=== PATIENT | male | born 1960 | race African-American/Black ===

== ENCOUNTER 2017-01-12 15:23 | Inpatient (IN) | payer OTHER ==
[~2017-01-12] VITALS: Ht 182.9 cm; Wt 130.4 kg
[~2017-01-12 15:23] MED LIST: AMBIEN5 MG PO; AMLODIPINE BESY10 MG PO; ATENOLOL100 MG PO; Ambien PO; Ascorbic Acid,Ester- PO; Dulcolax PR; Feosol PO; IRON325 M1 PO; LASIX40 MG PO; LIPITOR20 MG PO; LOSARTAN POTAS100 MG PO; POTASSIUM CHLO10 ME3 PO; Tenormin PO; VITAMIN D50000 UNI4 PO; Zestril,Prinivil PO; Zocor PO
[2017-01-12 16:21] LABS: HEMATOCRIT 33.6 % (38.0-50.0); MCH 28.6 PG (29.0-34.0); MCHC 34.2 G/DL (30.0-36.0); MCV 83.6 FL (86-99); MEAN PLAT.VOLUME 9.5 uM^3 (9.0-12.4); PLATELET COUNT 671 K/uL (156-360); RBC DIS.WIDTH-CV 15.5 % (11.8-14.6); RBC DIS.WIDTH-SD 46.8 % (39-53); RED BLOOD COUNT 4.02 M/uL (4.00-5.50); WHITE BLOOD COUNT 25.6 K/uL (4.1-10.2)
[2017-01-12 16:29] LABS: CHLORIDE 100 mEq/L (99-109); SODIUM 138 mEq/L (136-147)
[2017-01-12 16:31] LABS: GLUCOSE 100 mg/dL (70-99)
[2017-01-12 16:33] LABS: ANION GAP 16 MEQ/L (2-14)
[2017-01-12 16:35] LABS: GFR ESTIMATE (CALCULATED) 54 mL/min/
[2017-01-12 16:36] LABS: UREA NITROGEN (BUN) 42 mg/dL (9-23)
[2017-01-12] MEDS ORDERED: RANITIDINE HCL300 MG PO (18:22)
[2017-01-12] MEDS ORDERED: BACLOFEN10 MG PO (18:22)
[2017-01-12 22:25] LABS: CREATINE KINASE 289 IU/L (1-294)
[2017-01-12 22:45] VITALS: BP 98/52
[2017-01-13] VITALS (7 sets, daily range): BP systolic 96–140; BP diastolic 50–67
[2017-01-13 08:01] LABS: EOSINOPHIL (%) 0.3 % (0-5); EOSINOPHIL COUNT 0.1 K/uL (0-0.3); HEMATOCRIT 27.1 % (38.0-50.0); IMMATURE GRANULOCYTE (%) 1.9 % (0.0-0.7); IMMATURE GRANULOCYTE COUNT 0.3 K/uL; LYMPHOCYTE COUNT 0.6 K/uL (1.0-2.8); MCH 28.3 PG (29.0-34.0); MCHC 33.9 G/DL (30.0-36.0); MCV 83.4 FL (86-99); MEAN PLAT.VOLUME 9.8 uM^3 (9.0-12.4); MONOCYTE (%) 7.4 % (3-12); MONOCYTE COUNT 1.3 K/uL (0-0.8); PLATELET COUNT 561 K/uL (156-360); RBC DIS.WIDTH-CV 15.5 % (11.8-14.6); RBC DIS.WIDTH-SD 46.3 % (39-53); RED BLOOD COUNT 3.25 M/uL (4.00-5.50)
[2017-01-13 08:06] LABS: WHITE BLOOD COUNT 17.2 K/uL (4.1-10.2)
[2017-01-13 08:15] LABS: ANION GAP 14 MEQ/L (2-14); CHLORIDE 105 MEQ/L (99-109); GFR ESTIMATE (CALCULATED) > 59 mL/min/; GLUCOSE 107 mg/dL (70-99); POTASSIUM 3.6 MEQ/L (3.7-5.4); SAMPLE HEMOLYSIS CHECK 0; SAMPLE ICTERIC CHECK 1; SAMPLE LIPEMIA CHECK 0; SODIUM 138 MEQ/L (136-147); UREA NITROGEN (BUN) 30 mg/dL (9-23)
[2017-01-14 00:32] VITALS: BP 97/56
[2017-01-14 04:30] VITALS: BP 95/53
[2017-01-14 06:29] LABS: BASOPHIL COUNT 0.1 K/uL (0-0.1); EOSINOPHIL (%) 0.8 % (0-5); EOSINOPHIL COUNT 0.1 K/uL (0-0.3); HEMATOCRIT 25.4 % (38.0-50.0); IMMATURE GRANULOCYTE (%) 1.7 % (0.0-0.7); IMMATURE GRANULOCYTE COUNT 0.3 K/uL; INSTRUMENT ABS NEUTROPHIL CT 14.2 K/uL; LYMPHOCYTE COUNT 0.7 K/uL (1.0-2.8); MCH 28.5 PG (29.0-34.0); MCHC 33.9 G/DL (30.0-36.0); MCV 84.1 FL (86-99); MEAN PLAT.VOLUME 9.5 uM^3 (9.0-12.4); MONOCYTE (%) 8.1 % (3-12); MONOCYTE COUNT 1.4 K/uL (0-0.8); NEUTROPHIL COUNT 14.2 K/uL (1.8-6.4); PLATELET COUNT 513 K/uL (156-360); RBC DIS.WIDTH-CV 15.6 % (11.8-14.6); RBC DIS.WIDTH-SD 46.8 % (39-53); RED BLOOD COUNT 3.02 M/uL (4.00-5.50); WHITE BLOOD COUNT 16.7 K/uL (4.1-10.2)
[2017-01-14 06:55] LABS: ANION GAP 13 MEQ/L (2-14); CHLORIDE 105 MEQ/L (99-109); GFR ESTIMATE (CALCULATED) > 59 mL/min/; GLUCOSE 85 mg/dL (70-99); POTASSIUM 3.4 MEQ/L (3.7-5.4); SAMPLE HEMOLYSIS CHECK 0; SAMPLE ICTERIC CHECK 1; SAMPLE LIPEMIA CHECK 0; SODIUM 137 MEQ/L (136-147); UREA NITROGEN (BUN) 31 mg/dL (9-23)
[2017-01-14 08:33] VITALS: BP 113/57
[2017-01-14 16:39] VITALS: BP 116/55
[2017-01-14 20:33] VITALS: BP 102/59
[2017-01-15] VITALS (7 sets, daily range): BP systolic 115–171; BP diastolic 57–75
[2017-01-15 07:47] LABS: EOSINOPHIL (%) 1.2 % (0-5); EOSINOPHIL COUNT 0.2 K/uL (0-0.3); HEMATOCRIT 24.9 % (38.0-50.0); IMMATURE GRANULOCYTE (%) 2.1 % (0.0-0.7); IMMATURE GRANULOCYTE COUNT 0.3 K/uL; INSTRUMENT ABS NEUTROPHIL CT 13.6 K/uL; LYMPHOCYTE COUNT 0.9 K/uL (1.0-2.8); MCH 28.6 PG (29.0-34.0); MCHC 34.5 G/DL (30.0-36.0); MCV 82.7 FL (86-99); MEAN PLAT.VOLUME 9.7 uM^3 (9.0-12.4); MONOCYTE (%) 8.6 % (3-12); MONOCYTE COUNT 1.4 K/uL (0-0.8); NEUTROPHIL (%) 82.6 % (45-76); NEUTROPHIL COUNT 13.6 K/uL (1.8-6.4); PLATELET COUNT 497 K/uL (156-360); RBC DIS.WIDTH-CV 15.5 % (11.8-14.6); RBC DIS.WIDTH-SD 45.9 % (39-53); RED BLOOD COUNT 3.01 M/uL (4.00-5.50); WHITE BLOOD COUNT 16.5 K/uL (4.1-10.2)
[2017-01-15 08:15] LABS: CHLORIDE 109 mEq/L (99-109); POTASSIUM 3.1 mEq/L (3.7-5.4); SODIUM 139 mEq/L (136-147)
[2017-01-15 08:17] LABS: GLUCOSE 94 mg/dL (70-99)
[2017-01-15 08:18] LABS: ANION GAP 10 MEQ/L (2-14)
[2017-01-15 08:21] LABS: GFR ESTIMATE (CALCULATED) > 59 mL/min/
[2017-01-15 08:22] LABS: UREA NITROGEN (BUN) 23 mg/dL (9-23)
[2017-01-15 12:02] LABS: MAGNESIUM 1.4 mg/dL (1.3-2.7)
[2017-01-16 00:02] VITALS: BP 155/68
[2017-01-16 03:52] VITALS: BP 148/72
[2017-01-16 07:36] VITALS: BP 136/69
[2017-01-16 07:57] LABS: EOSINOPHIL (%) 1.1 % (0-5); EOSINOPHIL COUNT 0.2 K/uL (0-0.3); HEMATOCRIT 25.4 % (38.0-50.0); IMMATURE GRANULOCYTE (%) 1.6 % (0.0-0.7); IMMATURE GRANULOCYTE COUNT 0.3 K/uL; INSTRUMENT ABS NEUTROPHIL CT 14.9 K/uL; MCH 28.3 PG (29.0-34.0); MCHC 33.9 G/DL (30.0-36.0); MCV 83.6 FL (86-99); MEAN PLAT.VOLUME 9.8 uM^3 (9.0-12.4); MONOCYTE (%) 7.5 % (3-12); MONOCYTE COUNT 1.3 K/uL (0-0.8); NEUTROPHIL (%) 84.2 % (45-76); NEUTROPHIL COUNT 14.9 K/uL (1.8-6.4); PLATELET COUNT 552 K/uL (156-360); RBC DIS.WIDTH-CV 15.3 % (11.8-14.6); RBC DIS.WIDTH-SD 46.2 % (39-53); RED BLOOD COUNT 3.04 M/uL (4.00-5.50); WHITE BLOOD COUNT 17.7 K/uL (4.1-10.2)
[2017-01-16 08:16] LABS: ALKALINE PHOSPHATASE 122 IU/L (3-129); ANION GAP 13 MEQ/L (2-14); CHLORIDE 106 MEQ/L (99-109); GFR ESTIMATE (CALCULATED) > 59 mL/min/; GLUCOSE 84 mg/dL (70-99); POTASSIUM 3.6 MEQ/L (3.7-5.4); SAMPLE HEMOLYSIS CHECK 0; SAMPLE ICTERIC CHECK 0; SAMPLE LIPEMIA CHECK 0; SODIUM 140 MEQ/L (136-147); UREA NITROGEN (BUN) 15 mg/dL (9-23)
[2017-01-16 08:27] LABS: MAGNESIUM 1.7 mg/dl (1.3-2.7)
[2017-01-16 09:28] LABS: ADD MIUA? YES; BILIRUBIN NEGATIVE; BLOOD SMALL; COLOR AMBER ((YELLOW)); GLUCOSE (STRIP) NEGATIVE; KETONES NEGATIVE; LEUKOCYTES TRACE; NITRITE NEGATIVE; PROTEIN (STRIP) NEGATIVE; SPECIFIC GRAVITY 1.013 (1.000-1.030)
[2017-01-16 09:45] LABS: BACTERIA NONE SEEN /HPF; EPITHELIAL CELLS RARE /HPF; HYALINE CASTS 0-5 /LPF; MUCUS TRACE /LPF; RED BLOOD CELLS 0-5 /HPF (0-5); UCUL ADDED? NO; WHITE BLOOD CELLS CLUMP OCC /HPF (0-5)
[2017-01-16 12:12] VITALS: BP 116/56
[2017-01-16 16:16] VITALS: BP 153/75
[2017-01-16 19:45] VITALS: BP 130/70
[2017-01-17 00:26] VITALS: BP 132/72
[2017-01-17 03:55] VITALS: BP 132/74
[2017-01-17 08:05] VITALS: BP 141/75
[2017-01-17 11:25] VITALS: BP 141/82
[2017-01-17] MEDS ORDERED: DOCUSATE SODIU100 MG PO (11:48)
[2017-01-17] MEDS ORDERED: POLYETHYLENE GL17 GM PO (11:48)
[2017-01-17] MEDS ORDERED: ROCEPHIN 2 GM VI2 GM IV (11:48)
== END 2017-01-17 15:32 | disposition home health service (06) | DRG 871 ==
LOC: EME 15:23 → EDOF 21:42 → 4EAST 21:42 → 2EAST 01-15 16:26
PROVIDERS: Hospitalist; Physician Assistant; Physician Assistant Surgical
PROC: 8E0YXY8 Suture Removal from Lower Extremity (ICD-10-PCS; principal; 2017-01-12)
DX: A41.9 Sepsis, unspecified organism (principal); L89.324 Pressure ulcer of left buttock, stage 4; L89.313 Pressure ulcer of right buttock, stage 3; G83.4 Cauda equina syndrome; L03.115 Cellulitis of right lower limb; N17.9 Acute kidney failure, unspecified; E87.2 Acidosis; G82.20 Paraplegia, unspecified; L89.622 Pressure ulcer of left heel, stage 2; R60.9 Edema, unspecified; L89.892 Pressure ulcer of other site, stage 2; R65.20 Severe sepsis without septic shock; I10 Essential (primary) hypertension; D64.9 Anemia, unspecified; F32.9 Major depressive disorder, single episode, unspecified; E78.5 Hyperlipidemia, unspecified; B95.4 Other streptococcus as the cause of diseases classified elsewhere; D72.829 Elevated white blood cell count, unspecified; D50.9 Iron deficiency anemia, unspecified; Z99.3 Dependence on wheelchair; Z87.891 Personal history of nicotine dependence; Z87.440 Personal history of urinary (tract) infections
CPT/HCPCS: 73700; 76937; 80048; 80053; 81003; 82550; 82550 91; 83605; 83735; 85025; 85027; 87040; 87070; 87075; 87077; 87205; 87801; 93971; 99281; 99284; A6260; C1894; J0696; J1644; J2543; J3370; J3475; J3480; J7030; J7050

== ENCOUNTER 2017-02-21 14:47 | Inpatient (IN) | payer OTHER ==
[~2017-02-21] VITALS: Ht 182.9 cm; Wt 131.9 kg
[~2017-02-21 14:47] MED LIST changes: +BACLOFEN10 MG PO; +DOCUSATE SODIU100 MG PO; +LEVAQUIN750 MG PO; +POLYETHYLENE GL17 GM PO; +RANITIDINE HCL300 MG PO; +ROCEPHIN 2 GM VI2 GM IV
[2017-02-21 16:24] VITALS: BP 153/75
[2017-02-21 16:50] LABS: HEMATOCRIT 30.1 % (38.0-50.0); MCH 26.2 PG (29.0-34.0); MCHC 31.9 G/DL (30.0-36.0); MEAN PLAT.VOLUME 8.7 uM^3 (9.0-12.4); PLATELET COUNT 620 K/uL (156-360); RBC DIS.WIDTH-CV 14.6 % (11.8-14.6); RBC DIS.WIDTH-SD 43.4 % (39-53); RED BLOOD COUNT 3.67 M/uL (4.00-5.50); WHITE BLOOD COUNT 11.4 K/uL (4.1-10.2)
[2017-02-21 17:03] LABS: Estimated Average Glucose 134 mg/dL (70-123); HEMOGLOBIN A1c (GLYCOHEMOGLOB) 6.3 % HGB (Below 5.7)
[2017-02-21] MEDS ORDERED: LOSARTAN POTAS100 MG PO (17:21)
[2017-02-21] MEDS ORDERED: AMBIEN5 MG PO (17:23)
[2017-02-21] MEDS ORDERED: ERGOCALCIF50000 UNIT PO (17:24)
[2017-02-21 18:50] LABS: ALKALINE PHOSPHATASE 110 IU/L (3-129); ANION GAP 12 MEQ/L (2-14); CHLORIDE 102 MEQ/L (99-109); GFR ESTIMATE (CALCULATED) > 59 mL/min/; GLUCOSE 98 mg/dL (70-99); POTASSIUM 3.4 MEQ/L (3.7-5.4); SAMPLE HEMOLYSIS CHECK 0; SAMPLE ICTERIC CHECK 0; SAMPLE LIPEMIA CHECK 0; SODIUM 137 MEQ/L (136-147); TOTAL BILIRUBIN 1.3 MG/DL (0.0-1.0); UREA NITROGEN (BUN) 7 mg/dL (9-23)
[2017-02-21 19:39] VITALS: BP 150/67
[2017-02-21 23:31] VITALS: BP 112/55
[2017-02-22] VITALS (7 sets, daily range): BP systolic 105–146; BP diastolic 55–76
[2017-02-23 03:40] VITALS: BP 110/64
[2017-02-23 06:18] LABS: BASOPHIL COUNT 0.1 K/uL (0-0.1); EOSINOPHIL (%) 3.9 % (0-5); EOSINOPHIL COUNT 0.4 K/uL (0-0.3); IMMATURE GRANULOCYTE (%) 0.5 % (0.0-0.7); IMMATURE GRANULOCYTE COUNT 0.1 K/uL; INSTRUMENT ABS NEUTROPHIL CT 7.4 K/uL; MCH 25.6 PG (29.0-34.0); MCHC 31.6 G/DL (30.0-36.0); MCV 80.9 FL (86-99); MEAN PLAT.VOLUME 8.8 uM^3 (9.0-12.4); MONOCYTE COUNT 0.7 K/uL (0-0.8); NEUTROPHIL (%) 77.7 % (45-76); NEUTROPHIL COUNT 7.4 K/uL (1.8-6.4); PLATELET COUNT 522 K/uL (156-360); RBC DIS.WIDTH-CV 14.6 % (11.8-14.6); RBC DIS.WIDTH-SD 43.2 % (39-53); RED BLOOD COUNT 3.09 M/uL (4.00-5.50); WHITE BLOOD COUNT 9.5 K/uL (4.1-10.2)
[2017-02-23 06:40] LABS: ALKALINE PHOSPHATASE 102 IU/L (3-129); ANION GAP 10 MEQ/L (2-14); CHLORIDE 105 MEQ/L (99-109); GFR ESTIMATE (CALCULATED) > 59 mL/min/; GLUCOSE 81 mg/dL (70-99); POTASSIUM 3.7 MEQ/L (3.7-5.4); SAMPLE HEMOLYSIS CHECK 0; SAMPLE ICTERIC CHECK 0; SAMPLE LIPEMIA CHECK 0; SODIUM 138 MEQ/L (136-147); TOTAL BILIRUBIN 1.2 MG/DL (0.0-1.0); UREA NITROGEN (BUN) 7 mg/dL (9-23)
[2017-02-23 06:51] LABS: C-REACTIVE PROTEIN 95.8 MG/L (0-10); MAGNESIUM 1.4 mg/dl (1.3-2.7)
[2017-02-23 07:21] LABS: ERTH.SED.RATE 65 MM/HR (0-20)
[2017-02-23 08:10] VITALS: BP 106/85
[2017-02-23 11:58] VITALS: BP 117/58
[2017-02-23 16:00] VITALS: BP 112/67
[2017-02-23 23:51] VITALS: BP 110/59
[2017-02-24 06:59] LABS: HEMATOCRIT 25.2 % (38.0-50.0); MCH 26.6 PG (29.0-34.0); MCHC 32.1 G/DL (30.0-36.0); MCV 82.9 FL (86-99); MEAN PLAT.VOLUME 9.2 uM^3 (9.0-12.4); PLATELET COUNT 529 K/uL (156-360); RBC DIS.WIDTH-CV 14.7 % (11.8-14.6); RBC DIS.WIDTH-SD 44.5 % (39-53); RED BLOOD COUNT 3.04 M/uL (4.00-5.50); WHITE BLOOD COUNT 10.7 K/uL (4.1-10.2)
[2017-02-24 07:09] LABS: ANION GAP 8 MEQ/L (2-14); CHLORIDE 103 MEQ/L (99-109); GFR ESTIMATE (CALCULATED) > 59 mL/min/; GLUCOSE 86 mg/dL (70-99); SAMPLE HEMOLYSIS CHECK 0; SAMPLE ICTERIC CHECK 0; SAMPLE LIPEMIA CHECK 0; SODIUM 135 MEQ/L (136-147); UREA NITROGEN (BUN) 10 mg/dL (9-23)
[2017-02-24 08:33] VITALS: BP 112/82
[2017-02-24 11:00] VITALS: BP 144/89
[2017-02-24 15:50] VITALS: BP 149/89
[2017-02-25] VITALS: BP 98/54
[2017-02-25 08:34] VITALS: BP 100/62
[2017-02-25 11:34] VITALS: BP 98/69
[2017-02-25 14:49] VITALS: BP 105/55
[2017-02-25 17:08] VITALS: BP 113/89
[2017-02-25 23:30] VITALS: BP 95/48
[2017-02-26 07:25] VITALS: BP 121/60
[2017-02-26 13:27] LABS: HEMATOCRIT 27.4 % (38.0-50.0); MCH 25.4 PG (29.0-34.0); MCV 81.8 FL (86-99); MEAN PLAT.VOLUME 8.9 uM^3 (9.0-12.4); PLATELET COUNT 578 K/uL (156-360); RBC DIS.WIDTH-CV 14.6 % (11.8-14.6); RBC DIS.WIDTH-SD 42.8 % (39-53); RED BLOOD COUNT 3.35 M/uL (4.00-5.50)
[2017-02-26 13:47] LABS: ANION GAP 9 MEQ/L (2-14); CHLORIDE 102 MEQ/L (99-109); SAMPLE HEMOLYSIS CHECK 0; SAMPLE ICTERIC CHECK 0; SAMPLE LIPEMIA CHECK 0; SODIUM 133 MEQ/L (136-147)
[2017-02-26 13:52] LABS: GFR ESTIMATE (CALCULATED) > 59 mL/min/; GLUCOSE 87 mg/dL (70-99); UREA NITROGEN (BUN) 8 mg/dL (9-23)
[2017-02-26 15:21] VITALS: BP 128/80
[2017-02-26 23:19] VITALS: BP 102/50
[2017-02-27 05:56] LABS: BASOPHIL COUNT 0.1 K/uL (0-0.1); EOSINOPHIL (%) 6.8 % (0-5); EOSINOPHIL COUNT 0.7 K/uL (0-0.3); HEMATOCRIT 24.9 % (38.0-50.0); IMMATURE GRANULOCYTE (%) 0.4 % (0.0-0.7); INSTRUMENT ABS NEUTROPHIL CT 7.1 K/uL; LYMPHOCYTE COUNT 1.1 K/uL (1.0-2.8); MCH 26.4 PG (29.0-34.0); MCHC 32.1 G/DL (30.0-36.0); MCV 82.2 FL (86-99); MEAN PLAT.VOLUME 9.2 uM^3 (9.0-12.4); MONOCYTE (%) 11.2 % (3-12); MONOCYTE COUNT 1.1 K/uL (0-0.8); NEUTROPHIL (%) 70.1 % (45-76); NEUTROPHIL COUNT 7.1 K/uL (1.8-6.4); PLATELET COUNT 501 K/uL (156-360); RBC DIS.WIDTH-CV 14.6 % (11.8-14.6); RBC DIS.WIDTH-SD 43.9 % (39-53); RED BLOOD COUNT 3.03 M/uL (4.00-5.50); WHITE BLOOD COUNT 10.1 K/uL (4.1-10.2)
[2017-02-27 06:20] LABS: ANION GAP 9 MEQ/L (2-14); CHLORIDE 105 MEQ/L (99-109); GFR ESTIMATE (CALCULATED) > 59 mL/min/; GLUCOSE 97 mg/dL (70-99); POTASSIUM 3.9 MEQ/L (3.7-5.4); SAMPLE HEMOLYSIS CHECK 0; SAMPLE ICTERIC CHECK 0; SAMPLE LIPEMIA CHECK 0; SODIUM 135 MEQ/L (136-147); UREA NITROGEN (BUN) 10 mg/dL (9-23)
[2017-02-27 07:16] VITALS: BP 135/63
[2017-02-27 15:08] VITALS: BP 129/56
[2017-02-28 00:06] VITALS: BP 119/83
[2017-02-28 07:16] VITALS: BP 138/81
[2017-02-28 08:31] LABS: HEMATOCRIT 26.2 % (38.0-50.0); MCH 25.7 PG (29.0-34.0); MCHC 31.3 G/DL (30.0-36.0); MCV 82.1 FL (86-99); MEAN PLAT.VOLUME 9.3 uM^3 (9.0-12.4); PLATELET COUNT 559 K/uL (156-360); RBC DIS.WIDTH-CV 14.8 % (11.8-14.6); RBC DIS.WIDTH-SD 44.5 % (39-53); RED BLOOD COUNT 3.19 M/uL (4.00-5.50); WHITE BLOOD COUNT 9.8 K/uL (4.1-10.2)
[2017-02-28 15:02] VITALS: BP 109/59
[2017-02-28 23:31] VITALS: BP 99/50
[2017-03-01 08:13] VITALS: BP 119/60
[2017-03-01 15:59] VITALS: BP 123/65
[2017-03-01 23:57] VITALS: BP 121/72
[2017-03-02 05:59] LABS: HEMATOCRIT 25.5 % (38.0-50.0); MCH 25.5 PG (29.0-34.0); MCHC 31.4 G/DL (30.0-36.0); MCV 81.2 FL (86-99); MEAN PLAT.VOLUME 9.1 uM^3 (9.0-12.4); PLATELET COUNT 540 K/uL (156-360); RBC DIS.WIDTH-CV 14.8 % (11.8-14.6); RBC DIS.WIDTH-SD 43.7 % (39-53); RED BLOOD COUNT 3.14 M/uL (4.00-5.50); WHITE BLOOD COUNT 10.4 K/uL (4.1-10.2)
[2017-03-02 08:01] VITALS: BP 130/63
[2017-03-02 16:00] VITALS: BP 128/67
[2017-03-03 00:09] VITALS: BP 136/66
[2017-03-03 08:29] VITALS: BP 125/74
[2017-03-03 16:00] VITALS: BP 103/59
[2017-03-04] VITALS: BP 120/104
[2017-03-04 07:44] VITALS: BP 127/65
[2017-03-04 15:08] VITALS: BP 114/58
[2017-03-05 06:35] LABS: HEMATOCRIT 25.7 % (38.0-50.0); MCH 25.8 PG (29.0-34.0); MCHC 32.3 G/DL (30.0-36.0); MCV 79.8 FL (86-99); MEAN PLAT.VOLUME 9.2 uM^3 (9.0-12.4); PLATELET COUNT 541 K/uL (156-360); RBC DIS.WIDTH-CV 14.8 % (11.8-14.6); RBC DIS.WIDTH-SD 42.8 % (39-53); RED BLOOD COUNT 3.22 M/uL (4.00-5.50); WHITE BLOOD COUNT 10.3 K/uL (4.1-10.2)
[2017-03-05 06:51] LABS: INTER. NORMALIZED RATIO 1.3; PROTHROMBIN TIME 13.3 (9.2-11.2); PTT 29.8 (25-32)
[2017-03-05 07:17] LABS: ALKALINE PHOSPHATASE 97 IU/L (3-129); ANION GAP 10 MEQ/L (2-14); CHLORIDE 104 MEQ/L (99-109); GFR ESTIMATE (CALCULATED) > 59 mL/min/; GLUCOSE 76 mg/dL (70-99); POTASSIUM 3.9 MEQ/L (3.7-5.4); SAMPLE HEMOLYSIS CHECK 0; SAMPLE ICTERIC CHECK 0; SAMPLE LIPEMIA CHECK 0; SODIUM 135 MEQ/L (136-147); TOTAL BILIRUBIN 0.8 MG/DL (0.0-1.0); UREA NITROGEN (BUN) 11 mg/dL (9-23)
[2017-03-05 08:06] VITALS: BP 142/71
[2017-03-05 09:36] LABS: ANISOCYTOSIS 1+; OVALOCYTES 1+; PLAT.SUFFICIENCY INCREASED
[2017-03-05 16:17] VITALS: BP 162/87
[2017-03-05 19:01] LABS: POINT-OF-CARE METER ID UU13113675
[2017-03-05 23:20] VITALS: BP 137/74
[2017-03-06 03:26] VITALS: BP 107/65
[2017-03-06 09:32] LABS: HEMATOCRIT 27.5 % (38.0-50.0); MCH 24.7 PG (29.0-34.0); MCHC 30.5 G/DL (30.0-36.0); MCV 80.9 FL (86-99); MEAN PLAT.VOLUME 8.7 uM^3 (9.0-12.4); PLATELET COUNT 617 K/uL (156-360); RBC DIS.WIDTH-CV 14.8 % (11.8-14.6); WHITE BLOOD COUNT 13.4 K/uL (4.1-10.2)
[2017-03-06 12:20] VITALS: BP 118/63
[2017-03-06 19:36] VITALS: BP 121/65
[2017-03-06 23:33] VITALS: BP 105/52
[2017-03-07 03:53] VITALS: BP 103/55
[2017-03-07 07:48] VITALS: BP 116/57
[2017-03-07 10:44] LABS: HEMATOCRIT 25.3 % (38.0-50.0); MCH 25.9 PG (29.0-34.0); MCHC 31.6 G/DL (30.0-36.0); MCV 81.9 FL (86-99); MEAN PLAT.VOLUME 9.4 uM^3 (9.0-12.4); PLATELET COUNT 571 K/uL (156-360); RBC DIS.WIDTH-CV 14.9 % (11.8-14.6); RBC DIS.WIDTH-SD 44.3 % (39-53); RED BLOOD COUNT 3.09 M/uL (4.00-5.50)
[2017-03-07 11:12] LABS: ANION GAP 8 MEQ/L (2-14); CHLORIDE 103 MEQ/L (99-109); GFR ESTIMATE (CALCULATED) > 59 mL/min/; POTASSIUM 4.1 MEQ/L (3.7-5.4); SAMPLE HEMOLYSIS CHECK 0; SAMPLE ICTERIC CHECK 0; SAMPLE LIPEMIA CHECK 0; SODIUM 137 MEQ/L (136-147); UREA NITROGEN (BUN) 8 mg/dL (9-23)
[2017-03-07 11:14] LABS: GLUCOSE 101 mg/dL (70-99)
[2017-03-07] MEDS ORDERED: ELIQUIS5 MG PO (11:38)
[2017-03-07] MEDS ORDERED: FERROUS SULFAT325 MG PO (11:38)
[2017-03-07] MEDS ORDERED: COLACE100 MG PO (11:39)
[2017-03-07 11:59] VITALS: BP 93/54
== END 2017-03-07 14:47 | disposition home health service (06) | DRG 474 ==
LOC: 5SOUTH 14:47
PROVIDERS: Hospitalist; Internal Medicine; Internal Medicine Infectious Disease; Nurse Practitioner Adult Health; Physician Assistant Surgical; Surgery
PROC: 0Y6H0Z1 Detachment at Right Lower Leg, High, Open Approach (ICD-10-PCS; principal; 2017-02-21)
DX: M86.071 Acute hematogenous osteomyelitis, right ankle and foot (principal); L89.313 Pressure ulcer of right buttock, stage 3; M00.9 Pyogenic arthritis, unspecified; L89.323 Pressure ulcer of left buttock, stage 3; L89.893 Pressure ulcer of other site, stage 3; I96 Gangrene, not elsewhere classified; G82.20 Paraplegia, unspecified; L03.115 Cellulitis of right lower limb; I10 Essential (primary) hypertension; G83.4 Cauda equina syndrome; E66.9 Obesity, unspecified; L89.510 Pressure ulcer of right ankle, unstageable; L89.610 Pressure ulcer of right heel, unstageable; F32.9 Major depressive disorder, single episode, unspecified; D50.9 Iron deficiency anemia, unspecified; E78.5 Hyperlipidemia, unspecified; I48.2 Chronic atrial fibrillation; M81.0 Age-related osteoporosis without current pathological fracture; N39.0 Urinary tract infection, site not specified; Z68.39 Body mass index [BMI] 39.0-39.9, adult; B95.5 Unspecified streptococcus as the cause of diseases classified elsewhere; S31.829A Unspecified open wound of left buttock, initial encounter; X58.XXXA Exposure to other specified factors, initial encounter
CPT/HCPCS: 73610; 73630; 80048; 80053; 82948; 83036; 83735; 84100; 85025; 85027; 85610; 85651; 85730; 86140; 86141; 86900; 86901; 87040; 88307; 93005; 94799; 99215; C1753; J1650; J2250; J2405; J2543; J3010; J3475; J7050; J7120

== ENCOUNTER 2017-11-09 12:15 | Inpatient (IN) | payer OTHER ==
[~2017-11-09] VITALS: Ht 182.9 cm; Wt 123.0 kg
[~2017-11-09 12:15] MED LIST changes: -ATENOLOL100 MG PO; +ATENOLOL50 MG PO; +COLACE100 MG PO; +ELIQUIS5 MG PO; +ERGOCALCIF50000 UNIT PO; +FERROUS SULFAT325 MG PO
[2017-11-09 13:05] LABS: BASOPHIL (%) 0.4 % (0-1); BASOPHIL COUNT 0.1 K/uL (0-0.1); EOSINOPHIL (%) 1.7 % (0-5); EOSINOPHIL COUNT 0.2 K/uL (0-0.3); HEMATOCRIT 35.4 % (38.0-50.0); HEMOGLOBIN 11.5 G/DL (12.5-16.6); IMMATURE GRANULOCYTE (%) 0.6 % (0.0-0.7); LYMPHOCYTE (%) 7.1 % (15-42); MCH 27.4 PG (29.0-34.0); MCHC 32.5 G/DL (30.0-36.0); MCV 84.3 FL (86-99); MONOCYTE (%) 9.1 % (3-12); MONOCYTE COUNT 1.2 K/uL (0-0.8); NEUTROPHIL (%) 81.1 % (45-76); PLATELET COUNT 623 K/uL (156-360); RBC DIS.WIDTH-CV 15.7 % (11.8-14.6); RBC DIS.WIDTH-SD 47.8 % (39-53); WHITE BLOOD COUNT 13.6 K/uL (4.1-10.2)
[2017-11-09 13:15] LABS: CHLORIDE 106 mEq/L (99-109); SODIUM 142 mEq/L (136-147)
[2017-11-09 13:17] LABS: GLUCOSE 97 mg/dL (70-99)
[2017-11-09 13:21] LABS: CREATININE 0.8 mg/dL (0.6-1.3); GFR ESTIMATE (CALCULATED) > 59 mL/min/ (58.99-99999)
[2017-11-09 13:22] LABS: UREA NITROGEN (BUN) 9 mg/dL (9-23)
[2017-11-09 13:42] LABS: APPEARANCE CLOUDY ((CLEAR)); BILIRUBIN NEGATIVE; BLOOD MODERATE; COLOR YELLOW ((YELLOW)); GLUCOSE (STRIP) NEGATIVE; KETONES NEGATIVE; LEUKOCYTES LARGE; NITRITE POSITIVE; PROTEIN (STRIP) 30; SPECIFIC GRAVITY 1.014 (1.000-1.030)
[2017-11-09 14:02] LABS: BACTERIA 2+ /HPF; EPITHELIAL CELLS RARE /HPF; MUCUS NONE SEEN /LPF; UCUL ADDED? YES; WHITE BLOOD CELLS 40-50 /HPF (0-5)
[2017-11-09] MEDS ORDERED: VESICARE5 MG PO (15:27)
[2017-11-09] MEDS ORDERED: ZANTAC300 MG PO (15:29)
[2017-11-09 20:02] VITALS: BP 125/62
[2017-11-10 01:01] VITALS: BP 117/65
[2017-11-10 06:03] LABS: BASOPHIL (%) 0.8 % (0-1); BASOPHIL COUNT 0.1 K/uL (0-0.1); EOSINOPHIL (%) 4.1 % (0-5); EOSINOPHIL COUNT 0.4 K/uL (0-0.3); HEMOGLOBIN 10.3 G/DL (12.5-16.6); IMMATURE GRANULOCYTE (%) 0.4 % (0.0-0.7); LYMPHOCYTE (%) 11.3 % (15-42); LYMPHOCYTE COUNT 1.1 K/uL (1.0-2.8); MCH 26.6 PG (29.0-34.0); MCHC 32.2 G/DL (30.0-36.0); MCV 82.7 FL (86-99); MONOCYTE (%) 10.1 % (3-12); NEUTROPHIL (%) 73.3 % (45-76); NEUTROPHIL COUNT 7.4 K/uL (1.8-6.4); PLATELET COUNT 581 K/uL (156-360); RBC DIS.WIDTH-CV 15.5 % (11.8-14.6); RBC DIS.WIDTH-SD 47.1 % (39-53); RED BLOOD COUNT 3.87 M/uL (4.00-5.50)
[2017-11-10 06:06] LABS: INTER. NORMALIZED RATIO 1.9
[2017-11-10 06:25] LABS: CHLORIDE 105 MEQ/L (99-109); CREATININE 0.7 MG/DL (0.6-1.3); GFR ESTIMATE (CALCULATED) > 59 mL/min/ (58.99-99999); GLUCOSE 91 mg/dL (70-99); POTASSIUM 3.4 MEQ/L (3.7-5.4); SODIUM 140 MEQ/L (136-147); UREA NITROGEN (BUN) 7 mg/dL (9-23)
[2017-11-10 09:14] VITALS: BP 118/68
[2017-11-10 13:38] VITALS: BP 114/65
[2017-11-10 14:43] VITALS: BP 110/60
[2017-11-11] VITALS: BP 111/56
[2017-11-11 06:21] LABS: BASOPHIL (%) 0.8 % (0-1); BASOPHIL COUNT 0.1 K/uL (0-0.1); EOSINOPHIL (%) 4.8 % (0-5); EOSINOPHIL COUNT 0.4 K/uL (0-0.3); HEMATOCRIT 31.3 % (38.0-50.0); IMMATURE GRANULOCYTE (%) 0.5 % (0.0-0.7); LYMPHOCYTE (%) 11.3 % (15-42); MCHC 31.9 G/DL (30.0-36.0); MCV 84.6 FL (86-99); MONOCYTE (%) 10.7 % (3-12); MONOCYTE COUNT 0.9 K/uL (0-0.8); NEUTROPHIL (%) 71.9 % (45-76); PLATELET COUNT 519 K/uL (156-360); RBC DIS.WIDTH-CV 15.7 % (11.8-14.6); RBC DIS.WIDTH-SD 48.4 % (39-53); WHITE BLOOD COUNT 8.4 K/uL (4.1-10.2)
[2017-11-11 06:44] LABS: CHLORIDE 110 MEQ/L (99-109); CREATININE 0.8 MG/DL (0.6-1.3); GFR ESTIMATE (CALCULATED) > 59 mL/min/ (58.99-99999); GLUCOSE 89 mg/dL (70-99); MAGNESIUM 1.5 mg/dl (1.3-2.7); POTASSIUM 3.8 MEQ/L (3.7-5.4); SODIUM 142 MEQ/L (136-147); UREA NITROGEN (BUN) 8 mg/dL (9-23); VANCOMYCIN, TROUGH 18.5 MCG/ML (10-20)
[2017-11-11 08:35] VITALS: BP 132/81
[2017-11-11 16:19] VITALS: BP 131/76
[2017-11-12] VITALS: BP 128/74
[2017-11-12 07:00] LABS: CREATININE 0.9 MG/DL (0.6-1.3); GFR ESTIMATE (CALCULATED) > 59 mL/min/ (58.99-99999)
[2017-11-12 10:48] LABS: VANCOMYCIN, TROUGH 10.7 MCG/ML (10-20)
[2017-11-12 16:04] VITALS: BP 141/86
[2017-11-12 23:32] VITALS: BP 156/80
[2017-11-13 07:47] VITALS: BP 145/78
[2017-11-13] MEDS ORDERED: AMBIEN5 MG PO (11:25)
[2017-11-13] MEDS ORDERED: ACETAMINOPHEN-1 EAC1 PO (11:25)
[2017-11-13 15:13] VITALS: BP 156/84
== END 2017-11-13 16:47 | DRG 602 ==
LOC: EME 12:15 → EDOF 15:09 → 5SOUTH 15:09 → ENRESERV 15:20 → 5SOUTH 18:49
PROVIDERS: Emergency Medicine; Internal Medicine; Physician Assistant; Radiology Diagnostic Radiology
PROC: 0J9730Z Drainage of Back Subcutaneous Tissue and Fascia with Drainage Device, Percutaneous Approach (ICD-10-PCS; principal; 2017-11-10)
PROC: 0J9730Z Drainage of Back Subcutaneous Tissue and Fascia with Drainage Device, Percutaneous Approach (ICD-10-PCS; 2017-11-10)
PROC: 0J9730Z Drainage of Back Subcutaneous Tissue and Fascia with Drainage Device, Percutaneous Approach (ICD-10-PCS; 2017-11-12)
PROC: 0J9730Z Drainage of Back Subcutaneous Tissue and Fascia with Drainage Device, Percutaneous Approach (ICD-10-PCS; 2017-11-13)
DX: L03.312 Cellulitis of back [any part except buttock and flank] (principal); L89.153 Pressure ulcer of sacral region, stage 3; L89.323 Pressure ulcer of left buttock, stage 3; L89.313 Pressure ulcer of right buttock, stage 3; K68.12 Psoas muscle abscess; M60.09 Infective myositis, multiple sites; N39.0 Urinary tract infection, site not specified; L02.415 Cutaneous abscess of right lower limb; L03.115 Cellulitis of right lower limb; F33.9 Major depressive disorder, recurrent, unspecified; G82.20 Paraplegia, unspecified; B96.89 Other specified bacterial agents as the cause of diseases classified elsewhere; L02.212 Cutaneous abscess of back [any part, except buttock and flank]; B95.4 Other streptococcus as the cause of diseases classified elsewhere; B96.5 Pseudomonas (aeruginosa) (mallei) (pseudomallei) as the cause of diseases classified elsewhere; E66.9 Obesity, unspecified; E78.5 Hyperlipidemia, unspecified; E87.6 Hypokalemia; I10 Essential (primary) hypertension; I48.2 Chronic atrial fibrillation; K21.9 Gastro-esophageal reflux disease without esophagitis; M19.90 Unspecified osteoarthritis, unspecified site; M48.061 Spinal stenosis, lumbar region without neurogenic claudication; R59.1 Generalized enlarged lymph nodes; R61 Generalized hyperhidrosis; M25.452 Effusion, left hip; M25.451 Effusion, right hip; G47.00 Insomnia, unspecified; Z79.01 Long term (current) use of anticoagulants; Z99.3 Dependence on wheelchair; Z89.511 Acquired absence of right leg below knee; Z68.36 Body mass index [BMI] 36.0-36.9, adult; Z87.440 Personal history of urinary (tract) infections; Z87.891 Personal history of nicotine dependence; Z82.49 Family history of ischemic heart disease and other diseases of the circulatory system; Z83.3 Family history of diabetes mellitus
CPT/HCPCS: 10030; 71045; 72158; 72197; 74177; 76882; 76937; 80048; 80202; 81003; 82565; 82948; 83605; 83735; 85025; 85610; 85730; 87040; 87070; 87075; 87077; 87086 GA; 87147; 87186; 87205; 93005; 99281; 99285; A6260; C1729; C1769; J1644; J2270; J2543; J3010; J3370; J7030; J7050

== ENCOUNTER → 2017-12-05 | Outpatient (CLI) | payer OTHER ==
[~2017-12-05] MED LIST changes: +ACETAMINOPHEN-1 EAC1 PO; +VESICARE5 MG PO; +ZANTAC300 MG PO
== END ==
LOC: RAD 08:21
DX: L03.90 Cellulitis, unspecified (principal); L89.209 Pressure ulcer of unspecified hip, unspecified stage
CPT/HCPCS: 74177

== ENCOUNTER 2018-02-13 15:48 | Inpatient (IN) | payer OTHER ==
[~2018-02-13] VITALS: Ht 182.9 cm; Wt 116.2 kg
[~2018-02-13 15:48] MED LIST changes: +ATENOLOL100 MG PO; -ATENOLOL50 MG PO
[2018-02-13 18:17] LABS: HEMATOCRIT 39.9 % (38.0-50.0); HEMOGLOBIN 12.6 G/DL (12.5-16.6); MCHC 31.6 G/DL (30.0-36.0); MCV 82.3 FL (86-99); PLATELET COUNT 501 K/uL (156-360); RBC DIS.WIDTH-CV 16.1 % (11.8-14.6); RBC DIS.WIDTH-SD 48.3 % (39-53); RED BLOOD COUNT 4.85 M/uL (4.00-5.50); WHITE BLOOD COUNT 11.1 K/uL (4.1-10.2)
[2018-02-13 18:27] LABS: INTER. NORMALIZED RATIO 1.9
[2018-02-13 18:30] VITALS: BP 143/75
[2018-02-13 18:30] LABS: PTT 30.4 SEC (25-37)
[2018-02-13 18:46] LABS: CHLORIDE 104 MEQ/L (99-109); CREATININE 0.7 MG/DL (0.6-1.3); GFR ESTIMATE (CALCULATED) > 59 mL/min/ (58.99-99999); GLUCOSE 92 mg/dL (70-99); POTASSIUM 3.8 MEQ/L (3.7-5.4); SODIUM 141 MEQ/L (136-147); UREA NITROGEN (BUN) 14 mg/dL (9-23)
[2018-02-14 00:24] VITALS: BP 108/67
[2018-02-14 04:48] VITALS: BP 118/64
[2018-02-14 08:08] VITALS: BP 131/62
[2018-02-14 12:15] VITALS: BP 134/73
[2018-02-14 16:15] VITALS: BP 117/72
[2018-02-14 19:32] VITALS: BP 128/72
[2018-02-15 00:32] VITALS: BP 122/67
[2018-02-15 04:33] VITALS: BP 122/67
[2018-02-15 07:34] VITALS: BP 117/66
[2018-02-15 08:41] LABS: BASOPHIL (%) 0.5 % (0-1); BASOPHIL COUNT 0.1 K/uL (0-0.1); EOSINOPHIL (%) 3.8 % (0-5); EOSINOPHIL COUNT 0.4 K/uL (0-0.3); HEMATOCRIT 35.2 % (38.0-50.0); HEMOGLOBIN 11.4 G/DL (12.5-16.6); IMMATURE GRANULOCYTE (%) 0.5 % (0.0-0.7); LYMPHOCYTE (%) 9.3 % (15-42); LYMPHOCYTE COUNT 1.1 K/uL (1.0-2.8); MCH 26.6 PG (29.0-34.0); MCHC 32.4 G/DL (30.0-36.0); MCV 82.1 FL (86-99); MONOCYTE (%) 11.8 % (3-12); MONOCYTE COUNT 1.4 K/uL (0-0.8); NEUTROPHIL (%) 74.1 % (45-76); NEUTROPHIL COUNT 8.5 K/uL (1.8-6.4); PLATELET COUNT 395 K/uL (156-360); RBC DIS.WIDTH-CV 16.4 % (11.8-14.6); RBC DIS.WIDTH-SD 49.4 % (39-53); RED BLOOD COUNT 4.29 M/uL (4.00-5.50); WHITE BLOOD COUNT 11.5 K/uL (4.1-10.2)
[2018-02-15 09:04] LABS: CHLORIDE 110 MEQ/L (99-109); CREATININE 0.9 MG/DL (0.6-1.3); GFR ESTIMATE (CALCULATED) > 59 mL/min/ (58.99-99999); GLUCOSE 93 mg/dL (70-99); POTASSIUM 3.9 MEQ/L (3.7-5.4); SODIUM 142 MEQ/L (136-147); UREA NITROGEN (BUN) 14 mg/dL (9-23)
[2018-02-15 15:20] VITALS: BP 128/68
[2018-02-15 19:27] VITALS: BP 156/77
[2018-02-16] VITALS (7 sets, daily range): BP systolic 116–151; BP diastolic 65–78
[2018-02-17 06:04] VITALS: BP 128/70
[2018-02-17 07:17] VITALS: BP 128/68
[2018-02-17 07:50] LABS: BASOPHIL (%) 0.5 % (0-1); BASOPHIL COUNT 0.1 K/uL (0-0.1); EOSINOPHIL (%) 5.9 % (0-5); EOSINOPHIL COUNT 0.6 K/uL (0-0.3); HEMATOCRIT 36.7 % (38.0-50.0); HEMOGLOBIN 11.5 G/DL (12.5-16.6); IMMATURE GRANULOCYTE (%) 0.8 % (0.0-0.7); LYMPHOCYTE (%) 10.5 % (15-42); LYMPHOCYTE COUNT 1.1 K/uL (1.0-2.8); MCH 25.8 PG (29.0-34.0); MCHC 31.3 G/DL (30.0-36.0); MCV 82.3 FL (86-99); MONOCYTE (%) 11.3 % (3-12); MONOCYTE COUNT 1.2 K/uL (0-0.8); NEUTROPHIL COUNT 7.5 K/uL (1.8-6.4); PLATELET COUNT 386 K/uL (156-360); RBC DIS.WIDTH-CV 16.4 % (11.8-14.6); RBC DIS.WIDTH-SD 49.1 % (39-53); RED BLOOD COUNT 4.46 M/uL (4.00-5.50); WHITE BLOOD COUNT 10.6 K/uL (4.1-10.2)
[2018-02-17 08:02] LABS: ALBUMIN 3.3 G/DL (3.2-4.8); ALKALINE PHOSPHATASE 130 IU/L (3-129); ALT (GPT) 21 IU/L (3-49); AST (GOT) 15 IU/L (2-34); CHLORIDE 108 MEQ/L (99-109); CREATININE 0.8 MG/DL (0.6-1.3); GFR ESTIMATE (CALCULATED) > 59 mL/min/ (58.99-99999); GLUCOSE 109 mg/dL (70-99); POTASSIUM 4.2 MEQ/L (3.7-5.4); SODIUM 141 MEQ/L (136-147); TOTAL BILIRUBIN 0.4 MG/DL (0.0-1.0); TOTAL PROTEIN 7.4 G/DL (6.4-8.3); UREA NITROGEN (BUN) 14 mg/dL (9-23)
[2018-02-17 17:12] VITALS: BP 113/64
[2018-02-17 20:07] VITALS: BP 141/71
[2018-02-17 23:59] VITALS: BP 144/80
[2018-02-18 05:50] LABS: BASOPHIL (%) 0.6 % (0-1); BASOPHIL COUNT 0.1 K/uL (0-0.1); EOSINOPHIL (%) 5.3 % (0-5); EOSINOPHIL COUNT 0.6 K/uL (0-0.3); HEMATOCRIT 36.4 % (38.0-50.0); HEMOGLOBIN 11.6 G/DL (12.5-16.6); IMMATURE GRANULOCYTE (%) 0.9 % (0.0-0.7); LYMPHOCYTE (%) 10.2 % (15-42); LYMPHOCYTE COUNT 1.2 K/uL (1.0-2.8); MCHC 31.9 G/DL (30.0-36.0); MCV 81.4 FL (86-99); MONOCYTE (%) 10.8 % (3-12); MONOCYTE COUNT 1.3 K/uL (0-0.8); NEUTROPHIL (%) 72.2 % (45-76); NEUTROPHIL COUNT 8.4 K/uL (1.8-6.4); PLATELET COUNT 364 K/uL (156-360); RBC DIS.WIDTH-CV 16.5 % (11.8-14.6); RBC DIS.WIDTH-SD 48.5 % (39-53); RED BLOOD COUNT 4.47 M/uL (4.00-5.50); WHITE BLOOD COUNT 11.6 K/uL (4.1-10.2)
[2018-02-18 06:16] LABS: CHLORIDE 105 MEQ/L (99-109); CREATININE 0.9 MG/DL (0.6-1.3); GFR ESTIMATE (CALCULATED) > 59 mL/min/ (58.99-99999); GLUCOSE 101 mg/dL (70-99); POTASSIUM 3.8 MEQ/L (3.7-5.4); SODIUM 139 MEQ/L (136-147); UREA NITROGEN (BUN) 17 mg/dL (9-23)
[2018-02-18 07:53] VITALS: BP 134/80
[2018-02-18 11:48] VITALS: BP 137/74
[2018-02-18 16:00] VITALS: BP 133/74
[2018-02-18 23:44] VITALS: BP 136/63
[2018-02-19 08:15] VITALS: BP 133/77
[2018-02-19] MEDS ORDERED: CYCLOBENZAPRINE10 MG PO (12:49)
[2018-02-19] MEDS ORDERED: ASCORBIC ACID250 MG PO (12:49)
[2018-02-19] MEDS ORDERED: ZINC SULFATE220 M1 PO (12:49)
[2018-02-19 16:23] VITALS: BP 129/69
[2018-02-20 00:20] VITALS: BP 137/73
== END 2018-02-20 13:25 | DRG 463 ==
LOC: 3EAST 15:48 → ENRESERV 15:49 → 3EAST 17:32
PROVIDERS: Hospitalist; Internal Medicine
DX: M46.28 Osteomyelitis of vertebra, sacral and sacrococcygeal region (principal); L89.159 Pressure ulcer of sacral region, unspecified stage; L89.310 Pressure ulcer of right buttock, unstageable; L89.320 Pressure ulcer of left buttock, unstageable; E46 Unspecified protein-calorie malnutrition; L89.94 Pressure ulcer of unspecified site, stage 4; G82.20 Paraplegia, unspecified; L89.93 Pressure ulcer of unspecified site, stage 3; I10 Essential (primary) hypertension; F32.9 Major depressive disorder, single episode, unspecified; E78.5 Hyperlipidemia, unspecified; I48.2 Chronic atrial fibrillation; G83.4 Cauda equina syndrome; B96.5 Pseudomonas (aeruginosa) (mallei) (pseudomallei) as the cause of diseases classified elsewhere; Z68.34 Body mass index [BMI] 34.0-34.9, adult; Z87.440 Personal history of urinary (tract) infections; Z83.3 Family history of diabetes mellitus; Z89.511 Acquired absence of right leg below knee; Z79.01 Long term (current) use of anticoagulants
CPT/HCPCS: 71045; 76937; 80048; 80053; 84134; 85025; 85027; 85610; 85730; 87040; 87070; 87075; 87077; 87186; 87205; 88305; 88311; 93005; 99212; A6242; A6260; C1753; J0330; J1650; J2185; J2543; J2765; J3010; J7050; J7120